=== PATIENT | female | born 1965 | race Caucasian/White ===

== ENCOUNTER 2020-01-09 15:01 | Outpatient (CLI) | payer BC, SELFPAY | END 2020-01-09 15:02 | disposition home or self-care (01) | LOC: ANHAUDIO 15:03 | PROVIDERS: PCP Family Medicine; Visit Provider Family Medicine | DX: H90.3 Sensorineural hearing loss, bilateral (principal) | CPT/HCPCS: 92557; 92567 ==

== ENCOUNTER 2020-01-19 14:26 | Outpatient (RCR) | payer SELFPAY | END 2020-01-19 23:59 | disposition home or self-care (01) | LOC: ANHAUDIO 14:26 | PROVIDERS: PCP Family Medicine; Visit Provider Family Medicine | DX: Z46.1 Encounter for fitting and adjustment of hearing aid (principal) | CPT/HCPCS: V5261 ==

== ENCOUNTER 2020-06-12 14:59 | Outpatient (RCR) | payer BC, SELFPAY | END 2020-06-12 23:59 | disposition home or self-care (01) | LOC: ANHAUDIO 14:59 | PROVIDERS: PCP Family Medicine; Visit Provider Family Medicine | DX: Z46.1 Encounter for fitting and adjustment of hearing aid (principal) | CPT/HCPCS: 99199 ==

== ENCOUNTER 2020-10-26 07:36 | Outpatient (RCR) | payer BC, SELFPAY | END 2020-10-26 23:59 | disposition home or self-care (01) | LOC: ANHAUDIO 07:36 | PROVIDERS: PCP Family Medicine | DX: Z46.1 Encounter for fitting and adjustment of hearing aid (principal) | CPT/HCPCS: 99199 ==

== ENCOUNTER 2022-05-19 06:37 | Outpatient (RCR) | payer BC, SELFPAY | END 2022-05-19 23:59 | disposition home or self-care (01) | LOC: ANHAUDIO 06:37 | PROVIDERS: PCP Family Medicine; Visit Provider Family Medicine | DX: Z46.1 Encounter for fitting and adjustment of hearing aid (principal) | CPT/HCPCS: 99199 ==

== ENCOUNTER 2023-08-09 16:06 | Emergency (ER) | payer BC, SELFPAY ==
[2023-08-09] VITALS (7 sets, daily range): BP systolic 147–174; BP diastolic 85–100; PULSE 98–110; RESP 12–17; O2SAT 96–98
--- NOTE | ~2023-08-09 | CT_ITS ---
EXAMINATION: CTA brain carotid DATE: 08/09/2023 16:37 INDICATION: CVA? TECHNIQUE: Computed tomographic angiography (CTA) of the head was performed without and with 100 mL O mnipaque-350 intravenous contrast. CTA of the neck was performed with intravenous contrast. The dose- length product was 1494.86 mGy-cm. Maximum intensity projection and volume rendered 3D-reconstruction s were created by the technologist on a separate workstation. COMPARISON: None. FINDINGS: CT BRAIN: No acute large vessel infarct, intracranial hemorrhage, mass, or hydrocephalus. Right temporal 2.4 cm dural based, hemispheric, calcified, extradural mass, likely meningioma. Old tiny right centrum semi ovale infarct, right posterior external capsule lacunar infarct, and insular lacunar infarct. Right p osterior ethmoid retention cyst or polyp. Mild atrophy. Mild chronic white matter change. Mild right basal ganglia calcification. Mild intracranial atherosclerotic calcification. CTA HEAD: No large vessel occlusion, aneurysm, high flow vascular malformation, nidus or extravasation. Mild bi lateral cavernous carotid calcification without significant stenosis. CTA NECK: Aortic arch and proximal great vessels: Mild arch calcification. Right common carotid, carotid bifurcation, and internal carotid artery: Moderate calcified and noncal cified plaque at the right bifurcation.There is 46% stenosis of the proximal right internal carotid a rtery relative to normal distal artery lumen diameter (NASCET criteria). Left common carotid, carotid bifurcation, and internal carotid artery: Mild calcified plaque at the l eft bifurcation.There is 15% stenosis of the proximal left internal carotid artery relative to normal distal artery lumen diameter (NASCET criteria). Vertebral arteries: No significant plaque or stenosis. Other findings: Degenerative changes in the cervical spine. Severe bilateral neural foraminal narrowi ng at C5-6. No severe central canal stenosis. IMPRESSION: No large vessel intracranial occlusion, high-grade intracranial stenosis, or aneurysm. No carotid or vertebral artery occlusion, dissection, or significant stenosis. 2.4 cm right temporal extra-axial mass, likely meningioma. Reviewed, dictated and finalized at location K. [facility] LOBSTER IMPRESSION: No large vessel intracranial occlusion, high-grade intracranial stenosis, or an eurysm. No carotid or vertebral artery occlusion, dissection, or significant stenosis. 2.4 cm right temporal extra-axial mass, likely meningioma.
--- NOTE | ~2023-08-09 | XR_ITS ---
EXAMINATION: XR chest 1V portable Exam Date/Time: 08/09/2023 16:45 [employer] [employer] [employer] HISTORY: CVA? Comparison: None. RESULT: Lines, tubes, and devices: None. Lungs and pleura: Lordotic positioning, with low volumes and crowding. Cardiomediastinal silhouette: Stable. Other: No acute osseous or upper abdominal finding. IMPRESSION: No acute cardiopulmonary process. Reviewed, dictated and finalized at location K. [facility] SUPER[employer]OR
--- NOTE | 2023-08-09 16:12 | ECG_ITS ---
Measurements Intervals [place] Rate: 107 P: 41 [place]: 143 QRS: 8 QRSD: 82 T: 0 QT: 328 QTc: 438 Interpretive Statements SINUS TACHYCARDIA POSSIBLE LEFT ATRIAL ENLARGEMENT BORDERLINE ST-T WAVE ABNORMALITY- INFERIOR LEADS BASELINE ARTIFACT- I, II, III, AVR, AVL, AVF, V1-V6 ABNORMAL ECG NO PREVIOUS ECG AVAILABLE FOR COMPARISON Electronically Signed On 08-09-2023 21:20:17 [employer] by Ash Nieves D.O.
[2023-08-09 16:17] LABS: Glucose Point of Care 284 mg/dl (65-105)
[2023-08-09 16:26] LABS: Basophils Absolute Auto 0.1 K/mm3 (0.0-0.1); Basophils Percent Auto 0.7 % (0.2-1.2); Eosinophils Absolute Auto 0.2 K/mm3 (0-0.3); Eosinophils Percent Auto 2.2 % (0-4.4); Hematocrit 45.6 % (37.0-47.0); Hemoglobin 15.3 g/dL (12.0-15.0); Immature Granulocyte Absolute 0.04 K/mm3 (0.00-0.031); Immature Granulocyte Percent A 0.6 % (0-0.5); Lymphocytes Absolute Auto 2.21 K/mm3 (0.9-3.2); Lymphocytes Percent Auto 30.6 % (18.3-44.2); Mean Corpuscular HGB Conc 33.6 g/dl (32-36); Mean Corpuscular Hemoglobin 30.4 pg (26-34); Mean Corpuscular Volume 90.7 fl (80-100); Mean Platelet Volume 11.3 fl (7.4-10.4); Monocytes Absolute Auto 0.7 K/mm3 (0.1-0.6); Monocytes Percent Auto 9.5 % (2.6-8.5); Neutrophils Absolute Auto 4.1 K/mm3 (1.3-6.7); Neutrophils Percent Auto 56.4 % (45.5-73.1); Platelet Count Result 276 k/mm3 (150-375); Red Blood Count 5.03 M/mm3 (4.2-5.4); Red Cell Distribution Width 12.5 % (11.5-14.5); White Blood Count 7.2 K/mm3 (4.5-10.0)
[2023-08-09 16:30] LABS: Estimated Glomerular Filt Rate > 60
[2023-08-09 16:35] LABS: INR 0.9; Partial Thromboplastin Time 23.4 SECONDS (22.3-36.8); Prothrombin Time 11.9 Seconds (11.1-14.7)
[2023-08-09 16:47] LABS: Troponin I < 0.012 ng/mL (0.000-0.034)
[2023-08-09 17:07] LABS: Alanine Aminotransferase 62 U/L (6-35); Albumin Level 4.4 g/dL (3.5-5.1); Alkaline Phosphatase 66 U/L (38-126); Anion Gap 12 mmol/L (8-16); Aspartate Amino Transferase 35 U/L (14-36); Bilirubin,Total 0.5 mg/dL (0.2-1.3); Blood Urea Nitrogen 37 mg/dL (7-17); Calcium 10.7 mg/dL (8.4-10.2); Carbon Dioxide 22 mmol/L (22-30); Chloride 103 mmol/L (98-107); Estimated Glomerular Filt Rate > 60; Glucose 276 mg/dL (65-110); Potassium 4.1 mmol/L (3.4-5.0); Sodium 137 mmol/L (137-145)
[2023-08-09] MEDS: valACYclovir HCL 500 MG TABLET 1000 MG PO (17:46)
[2023-08-09] MEDS: FLUORESCEIN SOD 1 MG/STRIP LEFT EYE (17:46)
[2023-08-09] MEDS: TETRACAINE HCL 0.5% OPHTH SOLN 4 ML BTL LEFT EYE (17:46)
[2023-08-09] MEDS: predniSONE 20 MG TABLET 60 MG PO (17:47)
--- NOTE | 2023-08-09 18:30 | ED.NEUROSD ---
HPI - Neuro Symptoms/Deficit General Chief Complaint: Neuro Symptoms/Deficit Stated Complaint: L FACIAL DROOP SINCE 1529, L EARACHE,SINUS C/O Time Seen by Provider: 08/09/23 16:13 History of Present Illness HPI Narrative: patient presents here after noticed that she had a left-sided facial droop, patient states that for the last few days she has been noticing some pain to her left ear and some tearing of her left eye. Some pain across her left face. no other numbness or weakness anywhere else, no difficulty speaking. Related Data Home Medications Medication Instructions Recorded Confirmed fluticasone propionate 50 2 spray intranasal DAILY 01/02/20 06/08/23 mcg/actuation nasal spray,suspension (Allergy Relief (fluticasone)) levetiracetam 500 mg tablet 500 mg PO Q12H 01/02/20 06/08/23 (Keppra) metformin 1,000 mg tablet 1,000 mg PO BID 01/02/20 06/08/23 dapagliflozin propanediol 10 mg 10 mg PO DAILY 05/30/22 06/08/23 tablet (Farxiga) glipizide 5 mg tablet 5 mg PO DAILY 05/30/22 06/08/23 atorvastatin 10 mg tablet 20 mg PO DAILY 12/10/22 06/08/23 levothyroxine 88 mcg capsule 88 mcg PO DAILY 12/10/22 06/08/23 omeprazole 40 mg capsule,delayed See Rx Instructions .Route 12/10/22 06/08/23 release .COMPLEX PRN Allergies Allergy/AdvReac Type Severity Reaction Status Date / Time Sulfa (Sulfonamide Allergy Intermediate Hives Verified 06/08/23 16:46 Antibiotics) Review of Systems Review of Systems: CONST: No fever. HEENT: left ear/ eye pain and facial droop C/V: No chest pain RESP: No cough GI: No abdominal pain : No dysuria. M/S: No joint pain. SKIN: No rash. NEURO: [ left facial droop] PSYCH: [No depression] [facility] Past Medical History Medical History Diabetes Encephalitis HLD (hyperlipidemia) Hypertension Hypothyroidism Osteoporosis Restless leg syndrome Turners syndrome Surgical History Surgical History History of ankle surgery Family History Family History Father Hypertension Family history of coronary artery disease Family history of renal cell carcinoma Patient's father is Father Renal cell cancer Heart disease Hypertension Social History Social History Smoking status: Never smoker Second hand tobacco smoke exposure: No Alcohol intake: never Substance use: never Substance use type: does not use Lack of Transportation: No Lack of Food: Never True Current Housing: I Have Housing Concerned About Future Housing: No Difficulty Paying Gas/Electric Bills: No Difficulty Paying for Meds: No Currently Unemployed: No Education: Master's Degree or Higher Difficulty w/ Childcare or Family Care: No Living arrangements: with family Gender identity (if verbalized by the patient): Female Spiritual care concerns: No Agree to blood products: Yes Exam Narrative: EXAMINATION OF ORGAN SYSTEMS/BODY AREAS: Constitutional: Vital signs per nursing GENERAL:[No acute distress, non-toxic appearing.] HEAD: Normal with no signs of head trauma. EYES: EOMI, conjunctiva normal, PERRL, no fluorescein uptake ENT: TMs intact, no bulging/erythema, no lesions in ear canal LUNGS: Nonlabored breathing. HEART: [Regular rate and rhythm] ABD: [Soft], [nontender to palpation] EXT: Normal range of motion SKIN: [No rashes or lesions.] NEURO: [Alert and oriented x 3. Clear speech. Cannot raise left eyebrow, cannot close left eye, unequal smile. Normal motor strength upper and lower extremities; no diminished sensation. Ambulating normally. Normal gait. ] PSYCH: Normal affect Course Vital Signs Vital signs: Vital Signs Pulse Rate 107 H 08/09/23 16:17 Respirator
== END 2023-08-09 18:08 | disposition home or self-care (01) ==
PROVIDERS: Emergency Provider Emergency Medicine; PCP Family Medicine
DX: G51.0 Bell's palsy (principal); I10 Essential (primary) hypertension; E11.9 Type 2 diabetes mellitus without complications; E78.5 Hyperlipidemia, unspecified; M81.0 Age-related osteoporosis without current pathological fracture; G25.81 Restless legs syndrome; Q96.9 Turner's syndrome, unspecified; Z79.84 Long term (current) use of oral hypoglycemic drugs
CPT/HCPCS: 36415; 70496; 70498; 71045; 80053; 82948; 84484; 85025; 85610; 85730; 93005; 99284; A9270; J7512; Q9967

== ENCOUNTER 2023-11-20 10:55 | Outpatient (CLI) | payer BC, SELFPAY ==
--- NOTE | ~2023-11-20 | DEXA_ITS ---
Bone Density Report Name: RAFAEL KANG Age: 58 Sex: Female Ethnicity: White Date of : 1965 Indication: postmenopausal osteoporosis; prior fracture; seizure disorder; Referring Provider: REESE ALDANA Study: Bone densitometry was performed. Exam Date: November 20, 2023 Accession number: [id number] Bone Density: Region BMD T-score Z-score Classification AP Spine (L1-L4) 1.007 -0.4 1.1 Normal Femoral Neck (Left) 0.544 -2.7 -1.5 Osteoporosis Total Hip (Left) 0.691 -2.1 -1.1 Osteopenia Femoral Neck (Right) 0.514 -3.0 -1.7 Osteoporosis Total Hip (Right) 0.612 -2.7 -1.7 Osteoporosis Total Hip Mean 0.652 -2.4 -1.4 Osteopenia World Health Organization criteria for BMD impression classify patients as: Normal (T-score at or above -1.0), Osteopenia (T-score between -1.0 and -2.5), or Osteoporosis (T-score at or below -2.5). 10-year Fracture Risk: FRAX not reported because: Some T-score for Spine Total or Hip Total or Femoral Neck at or below -2.5 Previous Exams: Region Exam Age BMD T-score BMD Change BMD Change Date g/cm2 vs Baseline vs Previous AP Spine(L1-L4) 11/20/2023 58 1.007 -0.4 0.053* 0.053* 07/02/2016 50 0.954 -0.8 Total Hip(Left) 11/20/2023 58 0.691 -2.1 0.009 0.009 07/02/2016 50 0.682 -2.1 Total Hip(Right) 11/20/2023 58 0.612 -2.7 0.011 0.011 07/02/2016 50 0.601 -2.8 *Denotes significance at 95% confidence level, LSC for AP Spine = 0.022 g/cm2, LSC for Total Hip = 0.027 g/cm2 Clinical Information Provided by Patient: Has had a low trauma fracture Has used the following medications: Fosamax (i.e. alendronate), Vitamin D, Calcium, KAPRA Has the following medical conditions: Any Seizure Disorders, Turners Sydrome Patient maximum height was 56.6 Menopause Age: 48 No regular weight bearing exercise Drinks caffeinated beverages Onset of menses at age 14 Number of children 0 Missed period for more than 6 months in a row Impression: The patient has established osteoporosis, based on the Right Femoral Neck T-score and the existence of a prior fracture. The patient has risk factors, including: previous fracture. No significant bone loss was observed. Discussion: HIGH RISK OF FRACTURE. BONE DENSITY IS UNDESIRABLY LOW AT ONE OR MORE SKELETAL SITES, CONSISTENT WITH POSTMENOPAUSAL OSTEOPOROSIS. This patient's lowest T-score, in a patient who has previously fractured, meets
== END 2023-11-20 10:56 ==
LOC: MICIMG 10:58
PROVIDERS: PCP Internal Medicine Endocrinology, Diabetes & Metabolism; Visit Provider Physician Assistant Medical
DX: Z78.0 Asymptomatic menopausal state (principal); M81.0 Age-related osteoporosis without current pathological fracture; M85.852 Other specified disorders of bone density and structure, left thigh; M85.851 Other specified disorders of bone density and structure, right thigh
CPT/HCPCS: 77080

== ENCOUNTER 2024-10-05 13:43 | Emergency (ER) | payer OTHER, SELFPAY ==
[2024-10-05 13:59] VITALS: BP 128/81; PULSE 109; RESP 16; TEMP 36.6; O2SAT 97
--- NOTE | 2024-10-05 14:23 | ED_ITS ---
HPI - Ear Problem General Chief complaint: Ear Stated complaint: FB R EAR Source: patient Mode of arrival: ambulatory Limitations: no limitations History of Present Illness HPI Narrative: 59-year-old female presented for complaint of foreign body in the right ear canal. She says she was at the [employer] account [employer] and was told she has a plastic hearing aid dome in the canal. Patient denies any ear pain, tinnitus, dizzin ess, nausea, vomiting. She says an attempt was made to remove the dome but was unsuccessful. MD Complaint: ear pain Related Data Home Medications ?Medication ?Instructions ?Recorded ?Confirmed ?Last Taken ?Type fluticasone propionate 50 2 spray intranasal DAILY 01/02/20 08/19/23 Unknown History mcg/actuation nasal spray,suspension (Allergy Relief (fluticasone)) levetiracetam 500 mg tablet 500 mg PO Q12H 01/02/20 08/19/23 Unknown History (Keppra) metformin 1,000 mg tablet 1,000 mg PO BID 01/02/20 08/19/23 Unknown History dapagliflozin propanediol 10 mg 10 mg PO DAILY 05/30/22 08/19/23 Unknown History tablet (Farxiga) glipizide 5 mg tablet 5 mg PO DAILY 05/30/22 08/19/23 Unknown History atorvastatin 10 mg tablet 20 mg PO DAILY 12/10/22 08/19/23 Unknown History levothyroxine 88 mcg capsule 88 mcg PO DAILY 12/10/22 08/19/23 Unknown History omeprazole 40 mg capsule,delayed See Rx Instructions .Route 12/10/22 08/19/23 Unknown History release .COMPLEX PRN Allergies Allergy/AdvReac Type Severity Reaction Status Date / Time Sulfa (Sulfonamide Allergy Intermediate Hives Verified 10/05/24 14:28 Antibiotics) Review of Systems Review of Systems: CONSTITUTIONAL: Denies malaise, chills, or fever. EYES: Denies visual changes, redness, or discharge. ENT: Denies rhinorrhea, congestion, sinus pain, and sore throat. Reports ear FB CARDIOVASCULAR: Denies chest pain, palpitations, or edema. RESPIRATORY: Denies cough or dyspnea. GASTROINTESTINAL: Denies abdominal pain, nausea, vomiting, diarrhea SKIN: Denies rash or itching. MUSCULOSKELETAL: Denies myalgia. NEUROLOGIC: Denies headache. All systems reviewed & are unremarkable except as noted in HPI and below PMFSH Past Medical History Medical History Diabetes Encephalitis HLD (hyperlipidemia) Hypertension Hypothyroidism Osteoporosis Restless leg syndrome Turners syndrome Surgical History Surgical History History of ankle surgery Family History Family History Father Hypertension Family history of coronary artery disease Family history of renal cell carcinoma Patient's father is Father Renal cell cancer Heart disease Hypertension Social History Social History Smoking status: Never smoker Second hand tobacco smoke exposure: No Alcohol intake: never Substance use: never Substance use type: does not use Lack of Transportation: No Lack of Food: Never True Current Housing: I Have Housing Concerned About Future Housing: No Difficulty Paying Gas/Electric Bills: No Difficulty Paying for Meds: No Currently Unemployed: No Education: Master's Degree or Higher Difficulty w/ Childcare or Family Care: No Living arrangements: with family Gender identity (if verbalized by the patient): Female Spiritual care concerns: No Agree to blood products: Yes Comments At time of signature, agree with nursing past medical, surgical, social and family history. There is no relevant family history pertinent to the presenting complaint Exam Narrative: GENERAL: Well-appearing EYES: conjunctivae clear ENT: Nares clear. Mucous membranes moist. Right ear canal with clear plastic hearing aide dome; TMs pearly johnson with dull light reflex bilaterally; no tragal tenderness. NECK: normal ROM CHEST: Even, unlabored respirations. HEART: Regular rate and rhythm. SKIN: Warm, dry, no rash. NEURO: Alert and oriented x3. PSYCH: Normal mood and affect Course Course Emergency Course: Patient is aware of diagnosis, understands and agrees to treatment plan. Anticipatory guidance given. Patient agrees to follow-up as directed and is aware of reasons to seek care at the emergency department. Portions of this record may have been created with voice recognition software Level of Care: Express Care Visit Vital Signs Vital signs: Vital Signs Temperature 98 F 10/05/24 13:59 Pulse Rate 109 H 10/05/24 13:59 Respiratory Rate 16 10/05/24 13:59 Blood Pressure 128/81 10/05/24 13:59 Pulse Oximetry 97 10/05/24 13:59 Temperature 98 F 10/05/24 13:59 Pulse Rate 109 H 10/05/24 13:59 Respiratory Rate 16 10/05/24 13:59 Blood Pressure 128/81 10/05/24 13:59 Pulse Oximetry 97 10/05/24 13:59 Reviewed Procedures FB Removal Ear Foreign Body #1: Foreign Body Removal Date: 10/05/24 Location: ear canal (R) Foreign Body Suspected: other (hearing aide plastic dome) TM intact pre-procedure: yes Foreign Body Removed: yes (intact) Foreign Body Removal Technique: forceps Tympanic Membrane Intact Post Procedure: Yes Patient Tolerated Procedure: well and no complications Medical Decision Making MDM Narrative Medical decision making narrative: Patient with hearing aid to the right ear canal, removed without difficulty using forceps. Patient tolerated well. Advised supportive measures and signs/symptoms to go to the ER. Patient is appropriate for outpatient treatment and follow-up. Differential Diagnosis Differential Diagnosis: Coronavirus, strep pharyngitis, allergic rhinitis, upper respiratory tract infection, sinusitis, rhinosinusitis, nasopharyngitis, viral pharyngitis, otitis media, otitis externa, eustachian tube dysfunction, foreign body, cerumen impaction. Vital Signs Vital Signs: Vital Signs Temperature 98 F 10/05/24 13:59 Pulse Rate 109 H 10/05/24 13:59 Respiratory Rate 16 10/05/24 13:59 Blood Pressure 128/81 10/05/24 13:59 Pulse Oximetry 97 10/05/24 13:59 Temperature 98 F 10/05/24 13:59 Pulse Rate 109 H 10/05/24 13:59 Respiratory Rate 16 10/05/24 13:59 Blood Pressure 128/81 10/05/24 13:59 Pulse Oximetry 97 10/05/24 13:59 Discharge Plan Discharge Clinical Impression: Foreign body in ear Patient Disposition: Home, Self-Care Condition: Stable Instructions: Ear Foreign Body (ED) Additional Instructions: Follow up with your primary care provider as needed in 1 week Go to the ER for worsening symptoms or concerns Patient Language: Cook Islander Prescriptions: No Action levetiracetam [Keppra] 500 mg tablet 500 mg PO Q12H fluticasone propionate [Allergy Relief (fluticasone)] 50 mcg/actuation spray,suspension 2 spray NASAL DAILY Rx Instructions: administer into each nostril metformin 1,000 mg tablet 1,000 mg PO BID atorvastatin 10 mg tablet 20 mg PO DAILY levothyroxine 88 mcg capsule 88 mcg PO DAILY omeprazole 40 mg capsule,delayed release(DR/EC) See Rx Instructions .ROUTE .COMPLEX PRN Dose Instruction: TAKE 1 CAPSULE BY MOUTH EVERY DAY Rx Instructions: TAKE 1 CAPSULE BY MOUTH EVERY DAY PRN; Farxiga 10 mg tablet 10 mg PO DAILY glipizide 5 mg tablet 5 mg PO DAILY clonazepam 0.5 mg tablet 0.5 mg PO QHS Qty: 30 0RF Rx Instructions: administer 30 minutes before bedtime carboxymethylcellulose sodium [Lubricant Eye Drops] 0.5 % drops 1 drp LEFT EYE Q2-4H Qty: 30 0RF Rx Instructions: Use every 2 hours while awake. valacyclovir 1 gram tablet 1,000 mg PO Q8H 7 Days Qty: 21 0RF prednisone 20 mg tablet 60 mg PO DAILY 7 Days Qty: 21 0RF montelukast 10 mg tablet See Rx Instructions .ROUTE .COMPLEX Qty: 30 0RF Dose Instruction: TAKE 1 TABLET BY MOUTH DAILY Rx Instructions: TAKE 1 TABLET BY MOUTH DAILY pramipexole 0.5 mg tablet 0.5 mg PO BID Qty: 60 6RF fenofibrate nanocrystallized 145 mg tablet 145 mg PO DAILY Qty: 90 0RF metoprolol succinate 100 mg tablet extended release 24 hr See Rx Instructions .ROUTE .COMPLEX Qty: 30 5RF Dose Instruction: TAKE 1 TABLET BY MOUTH DAILY Rx Instructions: TAKE 1 TABLET BY MOUTH DAILY Follow-up/Referrals: Alee Mcelroy MD [Primary Care Provider] - Time of Disposition: 14:28
== END 2024-10-05 14:29 | disposition home or self-care (01) ==
PROVIDERS: Emergency Provider Nurse Practitioner Family; PCP Family Medicine
DX: T16.1XXA Foreign body in right ear, initial encounter (principal); W44.G1XA Audio device entering into or through a natural orifice, initial encounter; E11.9 Type 2 diabetes mellitus without complications; Z79.84 Long term (current) use of oral hypoglycemic drugs; E78.5 Hyperlipidemia, unspecified; I10 Essential (primary) hypertension; E03.9 Hypothyroidism, unspecified; M81.0 Age-related osteoporosis without current pathological fracture; G25.81 Restless legs syndrome; Q96.9 Turner's syndrome, unspecified
CPT/HCPCS: 69200; 99212; G0463

== ENCOUNTER 2025-06-11 08:10 | Emergency (ER) | payer OTHER, SELFPAY ==
[2025-06-11 08:18] VITALS: BP 143/94; PULSE 97; RESP 16; TEMP 36.4; O2SAT 98
--- NOTE | 2025-06-11 08:25 | ED.EAR ---
HPI - Ear Problem General Chief complaint: Ear Stated complaint: earbud cap stuck in ear Time Seen by Provider: 06/11/25 08:20 Source: patient and RN notes reviewed Mode of arrival: ambulatory Limitations: no limitations History of Present Illness HPI Narrative: Patient presents today complaining of a foreign body to the left ear canal. The tip of an earbud has been lodged in the ear canal since last night. Denies pain. She attempted removal with tweezers at home unsuccessfully. Related Data Home Medications ?Medication ?Instructions ?Recorded ?Confirmed ?Last Taken ?Type fluticasone propionate 50 2 spray intranasal DAILY 01/02/20 08/19/23 Unknown History mcg/actuation nasal spray,suspension (Allergy Relief (fluticasone)) levetiracetam 500 mg tablet 500 mg PO Q12H 01/02/20 08/19/23 Unknown History (Keppra) metformin 1,000 mg tablet 1,000 mg PO BID 01/02/20 08/19/23 Unknown History dapagliflozin propanediol 10 mg 10 mg PO DAILY 05/30/22 08/19/23 Unknown History tablet (Farxiga) glipizide 5 mg tablet 5 mg PO DAILY 05/30/22 08/19/23 Unknown History atorvastatin 10 mg tablet 20 mg PO DAILY 12/10/22 08/19/23 Unknown History levothyroxine 88 mcg capsule 88 mcg PO DAILY 12/10/22 08/19/23 Unknown History omeprazole 40 mg capsule,delayed See Rx Instructions .Route 12/10/22 08/19/23 Unknown History release .COMPLEX PRN Allergies Allergy/AdvReac Type Severity Reaction Status Date / Time Sulfa (Sulfonamide Allergy Intermediate Hives Verified 06/11/25 08:22 Antibiotics) [facility] Past Medical History Medical History Restless leg syndrome Turners syndrome Hypothyroidism Osteoporosis Encephalitis HLD (hyperlipidemia) Hypertension Diabetes Surgical History Surgical History History of ankle surgery Family History Family History Father Hypertension Family history of coronary artery disease Family history of renal cell carcinoma Patient's father is Father Renal cell cancer Heart disease Hypertension Social History Social History Smoking status: Never smoker Second hand tobacco smoke exposure: No Alcohol intake: never Substance use: never Substance use type: does not use Lack of Transportation: No Lack of Food: Never True Current Housing: I Have Housing Concerned About Future Housing: No Difficulty Paying Gas/Electric Bills: No Difficulty Paying for Meds: No Currently Unemployed: No Education: Master's Degree or Higher Difficulty w/ Childcare or Family Care: No Living arrangements: with family Gender identity (if verbalized by the patient): Female Spiritual care concerns: No Agree to blood products: Yes Comments At time of signature, I have reviewed and agree with nursing past medical, surgical, social and family history unless otherwise noted. Please see nursing chart for further information. There is no relevant family history pertinent to the presenting complaint Exam Narrative: GENERAL: Well-appearing, well-nourished, and in no acute distress. HEAD: Normocephalic, atraumatic. EYES: EOMI. No redness or drainage. Conjunctivae normal. ENT: Mucous membranes pink and moist. Black rubber foreign body in the left ear canal. NECK: Normal AROM. Supple. No lymphadenopathy. CHEST: No respiratory distress. SKIN: Warm, dry, no rash. Capillary refill normal. Normal skin turgor. NEURO: No focal deficits. Alert and oriented x3. Gait steady. PSYCH: Normal affect. No signs of depression or anxiety. Course Course Level of Care: Express Care Visit Vital Signs Vital signs: Vital Signs Temperature 97.5 F L 06/11/25 08:18 Pulse Rate 97 06/11/25 08:18 Respiratory Rate 16 06/11/25 08:18 Blood Pressure 143/94 H 06/11/25 08:18 Pulse Oximetry 98 06/11/25 08:18 Temperature 97.5 F L 06/11/25 08:18 Pulse Rate 97 06/11/25 08:18 Respiratory Rate 16 06/11/25 08:18 Blood Pressure 143/94 H 06/11/25 08:18 Pulse Oximetry 98 06/11/25 08:18 Reviewed Procedures FB Removal Ear Foreign Body #1: Foreign Body Removal Date: 06/11/25 Foreign Body Removal Time: 08:25 Location: ear canal (L) Foreign Body Suspected: other (ear bud tip) TM intact pre-procedure: unable to visualize Foreign Body Removed: yes Foreign Body Removal Technique: instrumentation Tympanic Membrane Intact Post Procedure: Yes Patient Tolerated Procedure: well Complications: none Medical Decision Making MDM Narrative Medical decision making narrative: Patient presents today complaining of a foreign body to the left ear canal. The tip of an earbud has been lodged in the ear canal since last night. Denies pain. She attempted removal with tweezers at home unsuccessfully. Upon exam, patient has a large black soft foreign body in the left ear canal. It was removed with alligator forceps without incident. Patient tolerated procedure well. Vital signs stable. Anticipatory guidance given. Differential Diagnosis Differential Diagnosis: Foreign body, TM rupture Vital Signs Vital Signs: Vital Signs Temperature 97.5 F L 06/11/25 08:18 Pulse Rate 97 06/11/25 08:18 Respiratory Rate 16 06/11/25 08:18 Blood Pressure 143/94 H 06/11/25 08:18 Pulse Oximetry 98 06/11/25 08:18 Temperature 97.5 F L 06/11/25 08:18 Pulse Rate 97 06/11/25 08:18 Respiratory Rate 16 06/11/25 08:18 Blood Pressure 143/94 H 06/11/25 08:18 Pulse Oximetry 98 06/11/25 08:18 Critical Care Time Critical Care Time Critical Care Time: No Discharge Plan Discharge Clinical Impression: Foreign body in left ear Qualifiers: Encounter type: initial encounter Qualified Code(s): T16.2XXA - Foreign body in left ear, initial encounter Patient Disposition: Home Condition: Stable Instructions: Ear Foreign Body (ED) Additional Instructions: The tip on your ear bud has been successfully removed from your ear. Follow-up with your PCP with any concerns. Patient Language: Belarusian Prescriptions: No Action levetiracetam [Keppra] 500 mg tablet 500 mg PO Q12H fluticasone propionate [Allergy Relief (fluticasone)] 50 mcg/actuation spray,suspension 2 spray NASAL DAILY Rx Instructions: administer into each nostril metformin 1,000 mg tablet 1,000 mg PO BID atorvastatin 10 mg tablet 20 mg PO DAILY levothyroxine 88 mcg capsule 88 mcg PO DAILY omeprazole 40 mg capsule,delayed release(DR/EC) See Rx Instructions .ROUTE .COMPLEX PRN Dose Instruction: TAKE 1 CAPSULE BY MOUTH EVERY DAY Rx Instructions: TAKE 1 CAPSULE BY MOUTH EVERY DAY PRN; Farxiga 10 mg tablet 10 mg PO DAILY glipizide 5 mg tablet 5 mg PO DAILY clonazepam 0.5 mg tablet 0.5 mg PO QHS Qty: 30 0RF Rx Instructions: administer 30 minutes before bedtime carboxymethylcellulose sodium [Lubricant Eye Drops] 0.5 % drops 1 drp LEFT EYE Q2-4H Qty: 30 0RF Rx Instructions: Use every 2 hours while awake. valacyclovir 1 gram tablet 1,000 mg PO Q8H 7 Days Qty: 21 0RF montelukast 10 mg tablet See Rx Instructions .ROUTE .COMPLEX Qty: 30 0RF Dose Instruction: TAKE 1 TABLET BY MOUTH DAILY Rx Instructions: TAKE 1 TABLET BY MOUTH DAILY fenofibrate nanocrystallized 145 mg tablet 145 mg PO DAILY Qty: 90 0RF pramipexole 0.5 mg tablet 0.5 mg PO BID Qty: 60 6RF metoprolol succinate 100 mg tablet extended release 24 hr See Rx Instructions .ROUTE .COMPLEX Qty: 30 5RF Dose Instruction: TAKE 1 TABLET BY MOUTH DAILY Rx Instructions: TAKE 1 TABLET BY MOUTH DAILY Follow-up/Referrals: PHYSICIAN,[employer]ING AND FINAL [employer]SEM[employer] SUPERVISOR [Primary Care Provider, Internal Medicine] Time of Disposition: 08:31
== END 2025-06-11 08:34 | disposition home or self-care (01) ==
PROVIDERS: Emergency Provider Nurse Practitioner
DX: T16.2XXA Foreign body in left ear, initial encounter (principal); W44.G1XA Audio device entering into or through a natural orifice, initial encounter; E11.9 Type 2 diabetes mellitus without complications; Z79.84 Long term (current) use of oral hypoglycemic drugs; I10 Essential (primary) hypertension; E78.5 Hyperlipidemia, unspecified; E03.9 Hypothyroidism, unspecified; M81.0 Age-related osteoporosis without current pathological fracture; G25.81 Restless legs syndrome; Q96.9 Turner's syndrome, unspecified
CPT/HCPCS: 69200; 99212; G0463